=== PATIENT | male | born 1960 | race Caucasian/White ===

== ENCOUNTER → 2024-12-15 16:27 | Outpatient (REF) | payer BC, SELFPAY | LOC: RAD 16:27 | PROVIDERS: ATTENDING PHYSICIAN Internal Medicine | DX: R10.30 Lower abdominal pain, unspecified (principal) | CPT/HCPCS: 74177; Q9967 ==

== ENCOUNTER → 2024-12-29 15:11 | Outpatient (REF) | payer BC, SELFPAY | LOC: HWRAD 15:11 | PROVIDERS: ATTENDING PHYSICIAN Pain Medicine Interventional Pain Medicine; FAMILY PHYSICIAN Internal Medicine | DX: K40.30 Unilateral inguinal hernia, with obstruction, without gangrene, not specified as recurrent (principal) | CPT/HCPCS: 76882 ==

== ENCOUNTER 2025-04-02 06:20 | Day surgery (SDC) | payer BC, SELFPAY ==
[2025-03-26 16:21] VITALS: BMI 33.2
[2025-04-02] VITALS (9 sets, daily range): BP systolic 121–142; BP diastolic 73–82; BMI 33.2
[2025-04-02] MEDS: TYLENOL 1000 MG PO (08:15)
[2025-04-02] MEDS: NORMOSOL-R/PLASMALYTE-A 1000 IV (08:18)
--- NOTE | 2025-04-02 08:42 | HP.FOC2 ---
Focused History & Physical
Chief Complaint
HPI:
Chief Complaint: Bilateral inguinal hernias
HPI / Indication for Planned Procedure: Patient is a 64-year-old male recently seen in outpatient surgical evaluation secondary to a few month history of right inguinal discomfort. Physical examination confirmed the presence of a readily apparent
and reducible right inguinal hernia. There is also a more subtle but palpable left inguinal hernia identified. After discussions with patient regarding treatment options he wished to pursue operative correction and presents today for scheduled
surgery.
Relevant Past Medical History: Other (Previous history of syncope)
Relevant Social History: Negative
Relevant Family History: Negative
Relevant Past Surgical History: Positive for (Right shoulder surgery)
Review of Systems
Review of Pertinent Systems: All Systems Negative
Medication
See Medication form for detailed medications: Yes
Medication List (including Herbals & OTC):
cholecalciferol (vitamin D3) 125 mcg (5,000 unit) tablet (Vitamin D3) 125 mcg PO DAILY 03/26/25
multivitamin 1 tab PO DAILY 03/26/25
Medications Reviewed: Yes
Allergies and Reactions
Patient has Allergies: No
Noted Allergies and Reactions:
Allergy/AdvReac Type Severity Reaction Status Date / Time
No Known Allergies Allergy Verified 04/02/25 07:53
Pertinent Physical Exam
All Other Systems: Negative
Head/Neck: Normal
Lungs: Normal
Heart: Normal
Abdomen: Other (Reducible bilateral inguinal hernias right side larger than left)
Extremities: Normal
Neurological: Normal
Diagnosis / Assessment
64-year-old male presenting for scheduled operative correction bilateral inguinal hernias
Plan / Procedure
Robotic assisted laparoscopic repair of bilateral inguinal hernias with mesh
Anesthesia/Sedation to be done by Anesthesia Provider: Yes
--- NOTE | 2025-04-02 08:44 | W.SUR.PREOP ---
Pre-Operative Surgical Note
-
I have examined this patient prior to the performance of the scheduled procedure.
The patient's condition is unchanged from the time of the current History and
Physical and the patient is able to undergo the scheduled procedure.
--- NOTE | 2025-04-02 10:48 | W.IMMPOSTOP ---
Addendum entered and electronically signed by Sukumar Robles MD 04/02/25 11:05:
#[id number]
Original Note:
Surgical Immed Post Op Note
-
Primary Surgeon: Sukumar Robles MD
Assisting Surgeon: Olivia Perdue PA-C
Pre-op Diagnosis: Bilateral inguinal hernias
Post-op Diagnosis: Bilateral inguinal hernias; right indirect, left direct
Procedure Performed: Robotic assisted laparoscopic DEE repair bilateral inguinal hernias with mesh; 3D max large mid weight x 2
Anesthesia Type: GETA +0.25% Marcaine with epinephrine
Specimen / Cultures: None
Estimated Blood Loss: 8mL
Complications: none immediate
Operative Findings: Right indirect inguinal hernia. Direct and femoral spaces normal. Small lipoma of cord structures reduced and excised to facilitate mesh placement. 3D max large mid weight mesh repair
Left direct inguinal hernia. Indirect and femoral spaces normal. No lipoma of cord structures identified. 3D max large mid weight mesh repair.
The assistance of Olivia Perdue PA-C was required due to the complexity of the procedure. During the procedure Olivia Perdue PA-C assisted with port placement, robotic instrumentation and suture material exchanges, and closure of the surgical incision
sites. I was present for the entirety of the operative procedure.
[2025-04-02] MEDS: DILAUDID 0.25 MG IV ×3 (11:15→11:42)
== END 2025-04-02 12:51 | disposition home or self-care (01) ==
LOC: SDS 06:20
PROVIDERS: ATTENDING PHYSICIAN Surgery; FAMILY PHYSICIAN Internal Medicine
DX: K40.20 Bilateral inguinal hernia, without obstruction or gangrene, not specified as recurrent (principal)
CPT/HCPCS: 49650; 36415; 93005; C1781